=== PATIENT | female | born 1985 | race Hispanic/Latino ===

== ENCOUNTER 2019-03-20 04:51 | Emergency (ER) | payer MEDICAID, OTHER ==
[2019-03-20 05:01] VITALS: BP 114/78
[2019-03-20] MEDS ORDERED: TYLENOL PO ONE (05:38)
--- NOTE | 2019-03-20 05:38 | XRay Report ---
PROCEDURE: XR KNEE 1-2V LT TECHNIQUE: Left knee radiographs, AP, lateral, views. HISTORY: Left knee pain and swelling S/P fall COMPARISONS: None FINDINGS: Fracture (s) and/or Dislocation(s): None Alignment: Normal Joint space(s): Slight joint effusion Soft tissues: Mild soft tissue swelling Bone mineralization: Normal Foreign bodies: None IMPRESSION: There is no evidence of an acute fracture. Mild joint effusion and slight soft tissue swelling This document is electronically signed by Paris Womack DO., March 20 2019 05:36:44 AM ET
[2019-03-20] MEDS ORDERED: TYLENOL ONE (05:42)
--- NOTE | 2019-03-20 07:45 | Emergency Department Report ---
ED Lower Extremity HPI - General Chief Complaint: Extremity Injury, Lower Stated Complaint: L KNEE PAIN Source: patient, EMS Mode of arrival: Wheelchair Limitations: No Limitations - History of Present Illness Initial Comments: This is a 34-year-old -[place] female that presents to the emergency room with left knee pain and swelling status post fall. Patient states she was intoxicated and fell down 4 steps around 0330 this morning. She didn't feel symptoms initially until sobering. Patient states it feels like pressure in her left knee and her patella is moving back and forth. Patient states she is able to extend and bend the knee with severe pain. She rates pain as 7 out of 10 on pain scale, pressure or throbbing intensity. She reports pain to anterior knee below the patella. She reports pain worse with weightbearing or movement. She denies numbness or tingling, hitting her head, weakness, loss of consciousness, or warmth to the area. MD Complaint: knee injury (left), fall Onset/Timin -: hour(s) Injury: Knee: Left Type of Injury: unknown Place: street/outdoors Severity: moderate Severity scale (0 -10): 7 Improves With: nothing Worsens With: weight bearing, movement Context: fall Associated Symptoms: snap/pop sensation, swelling, able to partially bear weight. denies: numbness, tingling - Related Data Previous Rx's Medication Instructions Recorded Last Taken Type Acetaminophen/Codeine [Tylenol 1 tab PO Q6H PRN #12 tab 03/20/19 Unknown Rx /Codeine # 3 tab] Naproxen [Naprosyn] 500 mg PO TID PRN #20 tablet 03/20/19 Unknown Rx Allergies Allergy/AdvReac Type Severity Reaction Status Date / Time No Known Allergies Allergy Verified 03/20/19 05:44 ED Review of Systems ROS: Stated complaint: L KNEE PAIN Other details as noted in HPI Constitutional: denies: chills, fever Respiratory: denies: cough, shortness of breath, wheezing Cardiovascular: denies: chest pain, palpitations Musculoskeletal: joint swelling (left knee), arthralgia (left knee). denies: back pain Skin: denies: rash, lesions Neurological: denies: headache, weakness, paresthesias Psychiatric: denies: anxiety, depression ED Past Medical Hx - Past Medical History Previous Medical History?: No - Surgical History Past Surgical History?: Yes Additional Surgical History: c-sec tonsilectomy - Social History Smoking Status: Current Every Day Smoker Substance Use Type: Alcohol, Marijuana - Medications Home Medications: Home Medications Medication Instructions Recorded Confirmed Last Taken Type Acetaminophen/Codeine [Tylenol 1 tab PO Q6H PRN #12 tab 03/20/19 Unknown Rx /Codeine # 3 tab] Naproxen [Naprosyn] 500 mg PO TID PRN #20 tablet 03/20/19 Unknown Rx ED Physical Exam - General Limitations: No Limitations General appearance: alert, in no apparent distress, obese (morbidly obese) - Respiratory Respiratory exam: Present: normal lung sounds bilaterally. Absent: respiratory distress - Cardiovascular Cardiovascular Exam: Present: regular rate, normal rhythm. Absent: systolic murmur, diastolic murmur, rubs, gallop - GI/Abdominal GI/Abdominal exam: Present: soft, normal bowel sounds - Expanded Lower Extremity Exam Left Hip exam: Present: normal inspection, full ROM Upper Leg exam: Present: normal inspection, full ROM Knee exam: Present: tenderness, swelling, erythema, pain w/ pronation/supination, full knee extension. Absent: abrasion, laceration, ecchymosis, deformity, crepidus, dislocation, effusion, posterior draw sign (patient unable to tolerate testing) Lower Leg exam: Present: normal inspection, full ROM Ankle exam: Present: normal inspection, full ROM Foot/Toe exam: Present: normal inspection, full ROM Neuro vascular tendon exam: Present: no vascular compromise Gait: Positive: observed and limited by pain - Neurological Exam Neurological exam: Present: alert, oriented X3 - Psychiatric Psychiatric exam: Present: normal affect, normal mood - Skin Skin exam: Present: warm, dry, intact, normal color. Absent: rash ED Course Vital Signs 03/20/19 03/20/19 03/20/19 04:57 05:40 08:29 Temperature 99.0 F Pulse Rate 113 H 107 H Respiratory 18 20 20 Rate Blood Pressure 114/78 O2 Sat by Pulse 100 98 Oximetry Vital Signs 03/20/19 03/20/19 03/20/19 04:57 05:40 08:29 Temperature 99.0 F Pulse Rate 113 H 107 H Respiratory 18 20 20 Rate Blood Pressure 114/78 O2 Sat by Pulse 100 98 Oximetry ED Lower Extremity MDM - Radiology Data Radiology results: report reviewed PROCEDURE: XR KNEE 1-2V LT TECHNIQUE: Left knee radiographs, AP, lateral, views. HISTORY: Left knee pain and swelling S/P fall COMPARISONS: None FINDINGS: Fracture (s) and/or Dislocation(s): None Alignment: Normal Joint space(s): Slight joint effusion Soft tissues: Mild soft tissue swelling Bone mineralization: Normal Foreign bodies: None IMPRESSION: There is no evidence of an acute fracture. Mild joint effusion and slight soft tissue swelling - Medical Decision Making Patient was examined by me. Vitals are normal and patient is in no acute distress. Patient given Tylenol and [place] while in the ER. Obtained a x-ray of left knee. X-rays dictated by radiologist and report reviewed by myself. Th ere is no evidence of an acute fracture. Mild joint effusion and slight soft tissue swelling. Patient couldn't tolerate drawer test on exam, continued suspicion of possible ligament tear. A knee immobilizer applied to left knee and ankle crutches given with education. Patient instructed to remain nonweightbearing until follow-up with orthopedics. Start ibuprofen and cyclobenzaprine for pain. Plan discussed with patient to discharge home and treat outpatient. He agrees with ER plan. Patient discharged home in stable condition. Follow up with PCP in 2-3 days. Critical care attestation.: If time is entered above; I have spent that time in minutes in the direct care of this critically ill patient, excluding procedure time. ED Disposition Clinical Impression: Left anterior knee pain Effusion of knee Qualifiers: Laterality: left Qualified Code(s): M25.462 - Effusion, left knee Fall Qualifiers: Encounter type: initial encounter Qualified Code(s): W19.XXXA - Unspecified fall, initial encounter Knee injury Qualifiers: Encounter type: initial encounter Laterality: left Qualified Code(s): S89.92XA - Unspecified injury of left lower leg, initial encounter Disposition: TO HOME OR SELFCARE Is pt being admited?: No Does the pt Need Aspirin: No Condition: Stable Instructions: Knee Effusion (ED), Arthralgia (ED) Additional Instructions: Use crutches as instructed to avoid applying weight to left leg. Follow-up with orthopedics from the referral list below as instructed. Take pain medication every 6-8 hours as needed for pain. Apply ice to the area for up to 20 minutes and off for 1-2 hours to decrease swelling. Return to the emergency room if worsening symptoms. Prescriptions: Naproxen [Naprosyn] 500 mg PO TID PRN #20 tablet PRN Reason: Pain, Moderate (4-6) Acetaminophen/Codeine [Tylenol /Codeine # 3 tab] 1 tab PO Q6H PRN #12 tab PRN Reason: Pain , Severe (7-10) Referrals: SOPHY BELL MD [Primary Care Provider] - 3-5 Days DUSTY OLIVO MD [Staff Physician] - 3-5 Days MARLIN SANTANA MD [Staff Physician] - 3-5 Days [facility] [Provider Group] - 3-5 Days Forms: Work/School Release Form(ED) Time of Disposition: 08:00
[2019-03-20] MEDS ORDERED: NORCO 5/325 PO ONE (07:49)
== END 2019-03-20 08:28 | disposition home or self-care (01) ==
LOC: ED 04:51
DX: S89.92XA Unspecified injury of left lower leg, initial encounter (principal); M25.462 Effusion, left knee; F17.200 Nicotine dependence, unspecified, uncomplicated; F12.10 Cannabis abuse, uncomplicated; Z90.89 Acquired absence of other organs; W10.8XXA Fall (on) (from) other stairs and steps, initial encounter; Y93.89 Activity, other specified; Y92.488 Other paved roadways as the place of occurrence of the external cause; Y99.8 Other external cause status